=== PATIENT | female | born 1980 | race African-American/Black ===

== ENCOUNTER 2021-06-13 18:35 | Emergency (ER) | payer OTHER, SELFPAY ==
--- NOTE | ~2021-06-13 | XR_ITS ---
EXAMINATION: XR forearm LT 2V INDICATION: Left forearm pain TECHNIQUE: Two views of the left forearm are obtained on three radiographs. COMPARISON: None available FINDINGS: There is proximal soft tissue swelling of the arm. There is no fracture, dislocation, or guerrero bluxation. 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 IMPRESSION: 1. No acute osseous abnormality. Reviewed, dictated and finalized at location A.
--- NOTE | ~2021-06-13 | XR_ITS ---
EXAMINATION: XR chest 2V DATE: 06/13/2021 20:19 INDICATION: Midsternal chest pain TECHNIQUE: PA and lateral views of the chest are obtained. COMPARISON: None available FINDINGS: The lungs are free of acute opacities. There is no pleural effusion or pneumothorax. The ca rdiomediastinal silhouette is normal. The visualized bones and soft tissues are unremarkable. IMPRESSION: 1. No acute cardiopulmonary abnormality. Reviewed, dictated and finalized at location A.
--- NOTE | ~2021-06-13 | CT_ITS ---
EXAMINATION: CT cervical spine wo con DATE: 06/13/2021 20:03 INDICATION: Neck pain TECHNIQUE: Computed tomography (CT) of the cervical spine was performed without intravenous contrast. The dose-length product (DLP) was 469.20 mGy-cm. Automated exposure control and iterative reconstruc tion technique were employed. COMPARISON: None FINDINGS: There is no fracture, dislocation, or subluxation. The vertebral body heights, alignment, a nd intervertebral disc spaces are normal. The paravertebral soft tissues are unremarkable. The odonto id is intact. Heterotopic ossification projecting to the left at the tip of the T1 spinous process vicente s a chronic appearance. IMPRESSION: 1. No acute osseous abnormality. Reviewed, dictated and finalized at location A.
--- NOTE | ~2021-06-13 | XR_ITS ---
EXAMINATION: XR hand LT min 3V INDICATION: Left hand pain TECHNIQUE: Three views of the left hand are obtained. COMPARISON: None available FINDINGS: There is no fracture, dislocation, or subluxation. The bones, soft tissues, and joint space s are normal. IMPRESSION: 1. No acute osseous abnormality. Reviewed, dictated and finalized at location A.
[2021-06-13 19:33] VITALS: BP 150/111; PULSE 65; RESP 18; TEMP 36.3; O2SAT 100
--- NOTE | 2021-06-13 19:39 | PC.NURSE ---
c-collar placed on arrival in triage.
[2021-06-13 21:01] VITALS: BP 138/81; PULSE 69; RESP 18; TEMP 36.2; O2SAT 100
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
[2021-06-13 21:48] VITALS: BP 126/76; PULSE 51; RESP 16; TEMP 35.8; O2SAT 100
== END 2021-06-13 21:50 | disposition home or self-care (01) ==
PROVIDERS: Emergency Provider Emergency Medicine; PCP Obstetrics & Gynecology
DX: S16.1XXA Strain of muscle, fascia and tendon at neck level, initial encounter (principal); S50.12XA Contusion of left forearm, initial encounter; V43.52XA Car driver injured in collision with other type car in traffic accident, initial encounter
CPT/HCPCS: 71046; 72125; 73090; 73130; 99284